=== PATIENT | female | born 1975 | race Hispanic/Latino ===

== ENCOUNTER → 2018-06-26 | Outpatient (CLI) | payer BC | END | disposition home or self-care (01) | LOC: RAH 09:16 | PROVIDERS: ATTEND Obstetrics & Gynecology | DX: Z12.31 Encounter for screening mammogram for malignant neoplasm of breast (principal) | CPT/HCPCS: 77067 ==

== ENCOUNTER → 2021-09-05 | Outpatient (CLI) | payer MEDICAID ==
[~2021-09-05] VITALS: Ht 172.7 cm; Wt 104.8 kg
[~2021-09-05] MED LIST: REGADENOSON 0.4 MG/5 ML PF SYG IVP SCH
== END | disposition home or self-care (01) ==
LOC: SHCH 09:00
PROVIDERS: ATTEND Internal Medicine
DX: R07.9 Chest pain, unspecified (principal)
CPT/HCPCS: 78452; 93017; 96374; A9500 ×2; J2785

== ENCOUNTER 2022-01-11 16:13 | Emergency (ER) | payer MEDICAID ==
[~2022-01-11] VITALS: Ht 172.7 cm; Wt 101.2 kg
[2022-01-11] MEDS ORDERED: FAMOTIDINE 20MG VIAL IV ONE (16:30)
[2022-01-11] MEDS ORDERED: DiphenhydrAMINE HCL 50 MG/ML VIAL IV ONE (16:30)
[2022-01-11] MEDS ORDERED: FAMO-136 PO (16:33)
[2022-01-11] MEDS ORDERED: CETI1SOL17 PO (16:33)
[2022-01-11 17:02] VITALS: BP 138/85
== END 2022-01-11 17:14 | disposition home or self-care (01) ==
LOC: EDH 16:13
DX: L50.9 Urticaria, unspecified (principal); E11.9 Type 2 diabetes mellitus without complications; E66.9 Obesity, unspecified; Z68.33 Body mass index [BMI] 33.0-33.9, adult; Z90.49 Acquired absence of other specified parts of digestive tract
CPT/HCPCS: 99284; 96374; 96375; 82948; J1200; S0028; J3490

== ENCOUNTER 2022-05-08 14:48 | Inpatient (IN) | payer MEDICAID ==
[~2022-05-08] VITALS: Ht 172.7 cm; Wt 108.9 kg
[~2022-05-08 14:48] MED LIST changes: +CETI1SOL17 PO; +FAMO-136 PO; -REGADENOSON 0.4 MG/5 ML PF SYG IVP SCH
[2022-05-08 15:47] LABS: APPEARANCE,URINE CLOUDY (CLEAR); BILIRUBIN,URINE SMALL mg/dL (NEGATIVE); COLOR,URINE YELLOW (YELLOW); GLUCOSE, URINE (UA) 500 mg/dL (NEGATIVE); KETONES,URINE 15 mg/dL (NEGATIVE); LEUKOCYTE ESTERASE ,URINE NEGATIVE Leu/uL (NEGATIVE); NITRATE,URINE NEGATIVE (NEGATIVE); OCCULT BLOOD,URINE LARGE (NEGATIVE); PROTEIN,URINE 30 mg/dL (NEGATIVE)
[2022-05-08 15:51] LABS: POTASSIUM 3.4 mmol/L (3.5-5.1)
[2022-05-08 15:53] LABS: BASOPHILS % (AUTO) 0.6 % (0.0-5.0); EOSINOPHILS % (AUTO) 2.5 % (0.0-8.0); HEMATOCRIT 28.5 % (36-48); LYMPHOCYTES % (AUTO) 19.8 % (21.0-51.0); MEAN CORPUSCULAR HEMOGLOBIN 27.5 pg (27.0-33.0); MEAN CORPUSCULAR HGB CONC 35.4 g/dL (32.0-36.0); MEAN CORPUSCULAR VOLUME 77.7 fL (79-99); MONOCYTES % (AUTO) 5.8 % (3.0-13.0); NEUTROPHILS % (AUTO) 70.9 % (40.0-77.0); RED CELL DISTRIBUTION WIDTH 14.7 % (11.0-15.5)
[2022-05-08 15:53] LABS: HCG,QUALITATIVE URINE NEGATIVE (NEGATIVE)
[2022-05-08 16:00] LABS: PLATELET COUNT (AUTO) 361 K/uL (130-400)
[2022-05-08 16:01] LABS: RED BLOOD CELL COUNT(AUTO) 4.37 MIL/uL (4.00-5.50); WHITE BLOOD COUNT (AUTO) 9.2 K/uL (4.8-10.8)
[2022-05-08 16:10] LABS: BACTERIA,URINE RARE /HPF (None Seen); MUCUS,URINE RARE LPF (None Seen); RBC,URINE 26-50 /HPF (0-1)
[2022-05-08 16:19] LABS: ABG BASE EXCESS -0.4 mmol/L (-2.0-3.0); ABG HCO3 22.4 mmol/L (21.0-28.0); ABG OXYGEN SATURATION 97.1 % (95.0-99.0); ABG PCO2 32 mmHg (32-45)
[2022-05-08] MEDS ORDERED: 0.9%NACL 1000ML 1,000 ML IV ONE (16:30)
[2022-05-08 16:39] LABS: ALBUMIN 3.3 g/dL (3.5-5.0); CREATININE 0.9 mg/dL (0.5-1.5); TOTAL PROTEIN, SERUM 7.8 g/dL (6.0-8.3)
[2022-05-08] MEDS ORDERED: MORPHINE 2 MG SYG IVP STA (16:50)
[2022-05-08] MEDS ORDERED: ONDANSETRON 4MG INJ IVP STA (16:50)
[2022-05-08] MEDS ORDERED: MORPHINE 2 MG SYG IVP ONE (18:00)
[2022-05-08] MEDS ORDERED: ONDANSETRON 4MG INJ IVP ONE (18:00)
[2022-05-08] MEDS ORDERED: LIDOCAINE HCL-MPF 1% 2ML VIAL IV PRN (19:00)
[2022-05-08] MEDS ORDERED: ACETAMINOPHEN 325 MG TAB PO PRN (19:00)
[2022-05-08] MEDS ORDERED: MORPHINE 2 MG SYG IVP PRN (19:00)
[2022-05-08] MEDS: HYDROMORPHONE 0.5 MG SYG (0.5MG/0.5ML) IVP PRN (19:41)
[2022-05-08] MEDS: D5W-1/2 NS/20MEQ KCL 1,000 ML IV SCH (20:38)
[2022-05-08 20:42] LABS: MAGNESIUM 1.4 mg/dL (1.80-2.40); POTASSIUM 3.7 mmol/L (3.5-5.1)
[2022-05-08] MEDS: INSULIN REGULAR, HUMAN 3ML 100 UNIT in 0.9%NACL 100ML 99 ML IV PRN ×2 (20:45)
[2022-05-08 21:17] LABS: CREATININE 0.7 mg/dL (0.5-1.5)
[2022-05-08] MEDS: MAGNESIUM 2GM PREMIX 50ML 50 ML IV PRN (21:26)
[2022-05-08] MEDS: PROMETHAZINE HCL 25 MG/ML 1ML AMPULE IM PRN (21:37)
[2022-05-08] MEDS: 0.9%NACL 1000ML 1,000 ML IV SCH (22:42)
[2022-05-08] MEDS: GEMFIBROZIL 600 MG TABLET PO SCH (22:42)
[2022-05-08 23:08] VITALS: BP 145/87
[2022-05-08 23:16] VITALS: BP 141/82
[2022-05-08 23:31] VITALS: BP 146/81
[2022-05-08 23:46] VITALS: BP 136/84
[2022-05-09] VITALS (52 sets, daily range): BP systolic 104–155; BP diastolic 44–91
[2022-05-09 02:19] LABS: BASOPHILS % (AUTO) 0.4 % (0.0-5.0); EOSINOPHILS % (AUTO) 0.1 % (0.0-8.0); LYMPHOCYTES % (AUTO) 5.1 % (21.0-51.0); MEAN CORPUSCULAR HEMOGLOBIN 30.5 pg (27.0-33.0); MEAN CORPUSCULAR HGB CONC 39.4 g/dL (32.0-36.0); MEAN CORPUSCULAR VOLUME 77.5 fL (79-99); MONOCYTES % (AUTO) 5.1 % (3.0-13.0); NEUTROPHILS % (AUTO) 88.9 % (40.0-77.0); PLATELET COUNT (AUTO) 289 K/uL (130-400); RED CELL DISTRIBUTION WIDTH 14.7 % (11.0-15.5); WHITE BLOOD COUNT (AUTO) 16.2 K/uL (4.8-10.8)
[2022-05-09 02:38] LABS: POTASSIUM 3.9 mmol/L (3.5-5.1)
[2022-05-09 02:39] LABS: MAGNESIUM 1.6 mg/dL (1.80-2.40)
[2022-05-09] MEDS ORDERED: DEXTROSE 5 %-0.45 % NACL 1,000 ML IV ONE (02:49)
[2022-05-09] MEDS: 0.9%NACL 1000ML 1,000 ML IV SCH ×4 (02:55→06:00)
[2022-05-09] MEDS: POTASSIUM CHLORIDE 20MEQ/100ML 100 ML IV PRN ×2 (02:57→14:04)
[2022-05-09 03:00] LABS: HEMOGLOBIN A1C 10.3 % (4.0-6.0)
[2022-05-09 03:05] LABS: ALBUMIN 2.7 g/dL (3.5-5.0); CREATININE 0.7 mg/dL (0.5-1.5)
[2022-05-09] MEDS: ONDANSETRON 4MG INJ IVP PRN ×3 (03:21→18:02)
[2022-05-09 03:56] LABS: TOTAL PROTEIN, SERUM 6.9 g/dL (6.0-8.3)
[2022-05-09] MEDS: HYDROMORPHONE 0.5 MG SYG (0.5MG/0.5ML) IVP PRN ×5 (04:17→21:39)
[2022-05-09] MEDS ORDERED: 0.9%NACL 1000ML 1,000 ML IV ONE ×2 (07:00→20:45)
[2022-05-09] MEDS: GEMFIBROZIL 600 MG TABLET PO SCH ×2 (07:38→17:16)
[2022-05-09] MEDS: MAGNESIUM 2GM PREMIX 50ML 50 ML IV PRN (07:38)
[2022-05-09 07:46] LABS: ABG BASE EXCESS -4.1 mmol/L (-2.0-3.0); ABG HCO3 20.7 mmol/L (21.0-28.0); ABG OXYGEN SATURATION 92.1 % (95.0-99.0); ABG PCO2 37 mmHg (32-45)
[2022-05-09] MEDS ORDERED: SODIUM BICARB 50MEQ 50ML VIAL 100 ML ONE (08:10)
[2022-05-09] MEDS ORDERED: SODIUM BICARB 50MEQ 50ML VIAL IV ONE (08:30)
[2022-05-09 08:44] LABS: INR 0.97 (0.85-1.15); PROTHROMBIN TIME 10.6 SEC (9.6-11.6)
[2022-05-09] MEDS: ZOSYN 3.375GM +NS 50ML IV SCH ×3 (08:50→23:32)
[2022-05-09 08:55] LABS: PARTIAL THROMBOPLASTIN TIME 27.9 SEC (26.3-35.5)
[2022-05-09 08:56] LABS: POTASSIUM 3.9 mmol/L (3.5-5.1)
[2022-05-09 10:43] LABS: CREATININE 0.4 mg/dL (0.5-1.5)
[2022-05-09] MEDS ORDERED: INSU100C14 SQ (11:17)
[2022-05-09] MEDS ORDERED: INSLAN SQ ×2 (11:17)
[2022-05-09] MEDS ORDERED: FENO67CA10 PO (11:17)
[2022-05-09] MEDS ORDERED: LISI2.5T13 PO (11:17)
[2022-05-09] MEDS: PROMETHAZINE HCL 25 MG/ML 1ML AMPULE IM PRN (11:27)
[2022-05-09] MEDS: POTASSIUM PHOS 15 mMOL+NS250ML 250 ML IV PRN ×2 (11:58→11:59)
[2022-05-09 12:20] LABS: CREATININE 0.8 mg/dL (0.5-1.5); POTASSIUM 3.7 mmol/L (3.5-5.1)
[2022-05-09] MEDS: D5W-1/2 NS/20MEQ KCL 1,000 ML IV SCH (13:00)
[2022-05-09] MEDS: METOCLOPRAMIDE 10 MG/2 ML VIAL IVP SCH ×2 (13:09→21:22)
[2022-05-09 16:44] LABS: CREATININE 0.8 mg/dL (0.5-1.5); POTASSIUM 4.5 mmol/L (3.5-5.1)
[2022-05-09 20:32] LABS: CREATININE 0.8 mg/dL (0.5-1.5); POTASSIUM 4.2 mmol/L (3.5-5.1)
[2022-05-09] MEDS: INSULIN REGULAR, HUMAN 3ML 100 UNIT in 0.9%NACL 100ML 99 ML IV PRN ×2 (21:30)
[2022-05-09] MEDS: INSULIN GLARGINE 100 UNITS/ML 10 ML VIAL SQ SCH (21:39)
[2022-05-10] VITALS (26 sets, daily range): BP systolic 109–135; BP diastolic 60–78
[2022-05-10] MEDS: D5W-1/2 NS/20MEQ KCL 1,000 ML IV SCH ×5 (00:49→20:29)
[2022-05-10 02:21] LABS: BASOPHILS % (AUTO) 0.4 % (0.0-5.0); EOSINOPHILS % (AUTO) 0.5 % (0.0-8.0); HEMATOCRIT 29.8 % (36-48); LYMPHOCYTES % (AUTO) 8.7 % (21.0-51.0); MEAN CORPUSCULAR HEMOGLOBIN 24.7 pg (27.0-33.0); MEAN CORPUSCULAR HGB CONC 32.2 g/dL (32.0-36.0); MEAN CORPUSCULAR VOLUME 76.6 fL (79-99); MONOCYTES % (AUTO) 3.9 % (3.0-13.0); PLATELET COUNT (AUTO) 266 K/uL (130-400); RED BLOOD CELL COUNT(AUTO) 3.89 MIL/uL (4.00-5.50); RED CELL DISTRIBUTION WIDTH 15.5 % (11.0-15.5); WHITE BLOOD COUNT (AUTO) 13.3 K/uL (4.8-10.8)
[2022-05-10 02:36] LABS: ALBUMIN 2.1 g/dL (3.5-5.0); BILIRUBIN,DIRECT 0.2 mg/dL (0.0-0.3); CREATININE 0.9 mg/dL (0.5-1.5); POTASSIUM 3.7 mmol/L (3.5-5.1); TOTAL PROTEIN, SERUM 5.9 g/dL (6.0-8.3)
[2022-05-10] MEDS: METOCLOPRAMIDE 10 MG/2 ML VIAL IVP SCH ×3 (05:15→23:45)
[2022-05-10] MEDS: HYDROMORPHONE 0.5 MG SYG (0.5MG/0.5ML) IVP PRN (05:42)
[2022-05-10 08:15] LABS: CREATININE 0.9 mg/dL (0.5-1.5); POTASSIUM 4.4 mmol/L (3.5-5.1)
[2022-05-10] MEDS: POTASSIUM CHLORIDE 20MEQ/100ML 100 ML IV PRN ×2 (08:37→23:40)
[2022-05-10] MEDS: INSULIN GLARGINE 100 UNITS/ML 10 ML VIAL SQ SCH ×2 (08:38→20:32)
[2022-05-10 09:15] LABS: PHOSPHORUS 1.9 mg/dL (2.5-4.9)
[2022-05-10] MEDS: INSULIN HUMULIN R 100 UNIT/ML 3ML SQ SCH ×3 (12:37→20:34)
[2022-05-10] MEDS: GEMFIBROZIL 600 MG TABLET PO SCH ×2 (12:54→16:33)
[2022-05-10] MEDS: ZOSYN 3.375GM +NS 50ML IV SCH ×2 (12:55→20:29)
[2022-05-10 13:52] LABS: CREATININE 0.7 mg/dL (0.5-1.5); POTASSIUM 4.1 mmol/L (3.5-5.1)
[2022-05-10 20:14] LABS: CREATININE 0.8 mg/dL (0.5-1.5); POTASSIUM 3.3 mmol/L (3.5-5.1)
[2022-05-11] VITALS (7 sets, daily range): BP systolic 110–140; BP diastolic 66–80
[2022-05-11 01:48] LABS: BASOPHILS % (AUTO) 0.4 % (0.0-5.0); EOSINOPHILS % (AUTO) 3.1 % (0.0-8.0); HEMATOCRIT 27.6 % (36-48); MEAN CORPUSCULAR HEMOGLOBIN 24.5 pg (27.0-33.0); MEAN CORPUSCULAR HGB CONC 31.2 g/dL (32.0-36.0); MEAN CORPUSCULAR VOLUME 78.6 fL (79-99); MONOCYTES % (AUTO) 4.9 % (3.0-13.0); NEUTROPHILS % (AUTO) 78.9 % (40.0-77.0); PLATELET COUNT (AUTO) 203 K/uL (130-400); RED BLOOD CELL COUNT(AUTO) 3.51 MIL/uL (4.00-5.50); RED CELL DISTRIBUTION WIDTH 15.7 % (11.0-15.5); WHITE BLOOD COUNT (AUTO) 13.6 K/uL (4.8-10.8)
[2022-05-11 02:03] LABS: CREATININE 0.7 mg/dL (0.5-1.5); POTASSIUM 3.5 mmol/L (3.5-5.1)
[2022-05-11 02:04] LABS: ALBUMIN 2.1 g/dL (3.5-5.0); BILIRUBIN,DIRECT 0.2 mg/dL (0.0-0.3)
[2022-05-11] MEDS: ZOSYN 3.375GM +NS 50ML IV SCH ×3 (04:19→19:24)
[2022-05-11] MEDS ORDERED: KCL 20 MEQ ERTAB PO PRN (04:30)
[2022-05-11] MEDS ORDERED: POTASSIUM CHLORIDE 10% ELIXIR 20 MEQ/15 ML UDCUP PO PRN (04:30)
[2022-05-11] MEDS: METOCLOPRAMIDE 10 MG/2 ML VIAL IVP SCH (05:16)
[2022-05-11] MEDS: GEMFIBROZIL 600 MG TABLET PO SCH ×2 (06:32→16:27)
[2022-05-11] MEDS: INSULIN GLARGINE 100 UNITS/ML 10 ML VIAL SQ SCH ×2 (06:33→20:21)
[2022-05-11] MEDS: INSULIN HUMULIN R 100 UNIT/ML 3ML SQ SCH ×4 (06:35→20:17)
[2022-05-12] MEDS: ZOSYN 3.375GM +NS 50ML IV SCH ×2 (04:04→13:24)
[2022-05-12 04:23] LABS: BASOPHILS % (AUTO) 0.5 % (0.0-5.0); EOSINOPHILS % (AUTO) 3.1 % (0.0-8.0); HEMATOCRIT 27.3 % (36-48); LYMPHOCYTES % (AUTO) 17.9 % (21.0-51.0); MEAN CORPUSCULAR HEMOGLOBIN 24.2 pg (27.0-33.0); MEAN CORPUSCULAR HGB CONC 30.8 g/dL (32.0-36.0); MEAN CORPUSCULAR VOLUME 78.7 fL (79-99); MONOCYTES % (AUTO) 5.8 % (3.0-13.0); NEUTROPHILS % (AUTO) 71.9 % (40.0-77.0); PLATELET COUNT (AUTO) 224 K/uL (130-400); RED BLOOD CELL COUNT(AUTO) 3.47 MIL/uL (4.00-5.50); RED CELL DISTRIBUTION WIDTH 15.7 % (11.0-15.5); WHITE BLOOD COUNT (AUTO) 11.1 K/uL (4.8-10.8)
[2022-05-12 04:34] LABS: ALBUMIN 2.2 g/dL (3.5-5.0); BILIRUBIN,DIRECT 0.2 mg/dL (0.0-0.3); CREATININE 0.6 mg/dL (0.5-1.5); POTASSIUM 3.6 mmol/L (3.5-5.1); TOTAL PROTEIN, SERUM 6.4 g/dL (6.0-8.3)
[2022-05-12 04:52] VITALS: BP 137/80
[2022-05-12] MEDS: GEMFIBROZIL 600 MG TABLET PO SCH ×2 (05:44→16:49)
[2022-05-12] MEDS: INSULIN HUMULIN R 100 UNIT/ML 3ML SQ SCH ×4 (05:44→21:30)
[2022-05-12] MEDS: INSULIN GLARGINE 100 UNITS/ML 10 ML VIAL SQ SCH ×2 (05:45→21:31)
[2022-05-12 08:00] VITALS: BP 128/78
[2022-05-12] MEDS: LISINOPRIL 2.5 MG TABLET PO SCH (08:48)
[2022-05-12 12:00] VITALS: BP 135/82
[2022-05-12 16:00] VITALS: BP 148/88
[2022-05-12] MEDS ORDERED: DIPHENOXYLATE HCL/ATROPINE 2.5/0.025 MG TAB PO PRN (19:30)
[2022-05-12 20:00] VITALS: BP 142/78
[2022-05-13] VITALS: BP 128/80
[2022-05-13 04:00] VITALS: BP 120/61
[2022-05-13] MEDS: INSULIN HUMULIN R 100 UNIT/ML 3ML SQ SCH ×2 (06:03→11:30)
[2022-05-13 07:14] LABS: HEMATOCRIT 25.7 % (36-48); MEAN CORPUSCULAR HEMOGLOBIN 24.5 pg (27.0-33.0); MEAN CORPUSCULAR HGB CONC 31.5 g/dL (32.0-36.0); MEAN CORPUSCULAR VOLUME 77.9 fL (79-99); RED BLOOD CELL COUNT(AUTO) 3.3 MIL/uL (4.00-5.50); RED CELL DISTRIBUTION WIDTH 15.4 % (11.0-15.5); WHITE BLOOD COUNT (AUTO) 8.5 K/uL (4.8-10.8)
[2022-05-13] MEDS: INSULIN GLARGINE 100 UNITS/ML 10 ML VIAL SQ SCH (07:14)
[2022-05-13 07:30] LABS: ALBUMIN 2.2 g/dL (3.5-5.0); BILIRUBIN,DIRECT 0.1 mg/dL (0.0-0.3); CREATININE 0.6 mg/dL (0.5-1.5); MAGNESIUM 1.6 mg/dL (1.80-2.40); POTASSIUM 3.5 mmol/L (3.5-5.1); TOTAL PROTEIN, SERUM 6.3 g/dL (6.0-8.3)
[2022-05-13 08:00] VITALS: BP 154/87
[2022-05-13] MEDS: LISINOPRIL 2.5 MG TABLET PO SCH (08:48)
[2022-05-13] MEDS: GEMFIBROZIL 600 MG TABLET PO SCH (08:51)
[2022-05-13] MEDS ORDERED: MAGNESIUM 4GM PREMIX 100ML 100 ML IV SCH (10:00)
[2022-05-13] MEDS ORDERED: MAGNESIUM 4GM PREMIX 100ML 100 ML IV ONE (10:00)
[2022-05-13 12:00] VITALS: BP 141/87
== END 2022-05-13 14:40 | disposition home or self-care (01) | DRG 282 ==
LOC: EDH 14:48 → EDHIP 14:49 → UNDOADMIN 18:51 → EDHIP 18:51 → 2CH 22:55 → 4BH 05-11 18:44
PROVIDERS: ADMIT Internal Medicine Infectious Disease; ATTEND Internal Medicine Infectious Disease
DX: K85.90 Acute pancreatitis without necrosis or infection, unspecified (principal); E87.21 Acute metabolic acidosis; E87.8 Other disorders of electrolyte and fluid balance, not elsewhere classified; E83.51 Hypocalcemia; D64.9 Anemia, unspecified; E87.1 Hypo-osmolality and hyponatremia; E11.65 Type 2 diabetes mellitus with hyperglycemia; Z20.822 Contact with and (suspected) exposure to COVID-19; E86.0 Dehydration; E66.01 Morbid (severe) obesity due to excess calories; E87.6 Hypokalemia; E78.1 Pure hyperglyceridemia; I10 Essential (primary) hypertension; Z83.3 Family history of diabetes mellitus; Z68.36 Body mass index [BMI] 36.0-36.9, adult
CPT/HCPCS: 36415; 36600; 71045; 74176; 80048; 80053; 80076; 81001; 81025; 82010; 82150; 82803; 82948; 83036; 83690; 83735; 84100; 84145; 84478; 85025; 85027; 85378; 85610; 85730; 87324; 87635; G0378; J1170; J1815; J2405; J2543; J2550; J2765; J3475; J3480; J3490; J7030; J7042